=== PATIENT | female | born 1995 | race Two or more races ===

== ENCOUNTER 2023-05-11 14:12 | Emergency (ER) | payer OTHER ==
[~2023-05-11] VITALS: Ht 170.2 cm; Wt 66.7 kg
== END 2023-05-11 16:35 | disposition home or self-care (01) ==
LOC: ER 14:12
DX: L98.9 Disorder of the skin and subcutaneous tissue, unspecified (principal); Z88.6 Allergy status to analgesic agent

== ENCOUNTER 2024-01-10 13:15 | Emergency (ER) | payer OTHER ==
[~2024-01-10] VITALS: Ht 170.2 cm; Wt 81.6 kg
[2024-01-10] MEDS ORDERED: FAMOTIDINE/PF 20 MG in 0.9 % SODIUM CHLORIDE 8 ML IV PUSH STA (15:19)
[2024-01-10] MEDS ORDERED: 0.9 % SODIUM CHLORIDE 1,000 ML IV SCH (15:30)
[2024-01-10] MEDS ORDERED: ONDANSETRON HCL 2 MG/ML VIAL IV ONE (15:30)
[2024-01-10] MEDS ORDERED: MEPERIDINE HCL/PF 50 MG/ML VIAL IM ONE (15:30)
[2024-01-10 15:52] LABS: HEMATOCRIT 39.8 % (36.0-45.00); HEMOGLOBIN 13.4 g/dL (12.0-15.00); MEAN CELL VOLUME 86.5 fL (80.00-100.00); MEAN CORPUSCULAR HEMOGLOBIN 29.2 pg (27.00-32.0); MEAN CORPUSCULAR HGB CONC 33.7 g/dl (32.0-36.0); PLATELET COUNT 181 K/uL (150-450)
[2024-01-10 16:30] LABS: ALBUMIN 4.2 gm/dL (3.4-5.0); BILIRUBIN TOTAL 0.32 mg/dL (0.3-1.2); BILIRUBIN,CONJUGATED 0.12 mg/dL (0.0-0.2); BILIRUBIN,UNCONJUGATED 0.2 mg/dL (0.0-0.6); CALCIUM 9.1 mg/dL (8.5-10.1); CREATININE SERUM 0.84 mg/dL (0.55-1.02); GFR 80.16; POTASSIUM 4.26 mEq/L (3.5-5.1); TOTAL PROTEIN 8.2 gm/dL (6.4-8.2)
[2024-01-10 17:41] LABS: PH,URINE 5.5 (5.0-8.0); URINE APPEARANCE Clear; URINE BILIRRUBIN Negative (NEGATIVE); URINE BLOOD Negative; URINE COLOR Yellow; URINE GLUCOSE Negative (NEGATIVE); URINE LEUKOCYTE Negative; URINE NITRATE Negative; URINE PROTEIN Negative (NEGATIVE); URINE UROBILINOGEN 0.2 E.U./dl
[2024-01-10 17:44] LABS: URINE EPITHELIAL CELLS 9.5 uL (0.0-38.8)
[2024-01-10 17:47] LABS: URINE WBC 1.3 uL (0.0-23.2)
== END 2024-01-10 18:08 | disposition home or self-care (01) ==
LOC: ER 13:15
PROVIDERS: General Practice
DX: N23 Unspecified renal colic (principal); Z88.6 Allergy status to analgesic agent; K80.20 Calculus of gallbladder without cholecystitis without obstruction